=== PATIENT | female | born 1935 | race Caucasian/White ===

== ENCOUNTER → 2016-04-21 | Outpatient (CLI) | payer MEDICARE, OTHER ==
[~2016-04-21] MED LIST: LISI-275 PO; MET50T PO; OMEP20CA5 PO; TRIATAB3 PO
[2016-04-21 12:28] LABS: Albumin 3.6 g/dL (3.4-5.0); Bilirubin, Total 0.6 mg/dL (0.2-1.0); Calcium 9.5 mg/dL (8.5-10.1); Potassium 4.2 mmol/L (3.5-5.1); Total Protein 7.7 g/dL (6.4-8.2)
[2016-04-21 12:35] LABS: INR 1.09 (0.9-1.15); Partial Thromboplastin Time 26.8 sec (22.64-33.71); Prothrombin Time 11.2 sec (9.37-12.3)
[2016-04-21 12:48] LABS: Urine Bilirubin Negative (Negative); Urine Blood Negative /uL (Negative); Urine Color Yellow (Yellow); Urine Glucose Normal (Normal); Urine Ketone Negative (Negative); Urine Nitrite Negative (Negative); Urine RBC <1 /hpf (0 - 4); Urine Squamous Epithelial Cell FEW /hpf (<5); Urine Urobilinogen Normal (Negative)
[2016-04-21 12:59] LABS: Basophils # (auto) 0 uL; Basophils % (auto) 0.3 % (0.0-2.0); Eosinophils # (auto) 0.1 uL; Eosinophils % (auto) 0.5 % (0.0-7.0); Hematocrit 50.7 % (36.0-46.0); Hemoglobin 16.5 g/dL (12.2-16.2); Lymphocytes # (auto) 1.5 uL; Lymphocytes % (auto) 16.1 % (10.0-50.0); Mean Corpuscular Hemoglobin 28.3 pg (28.0-32.0); Mean Corpuscular Hgb Conc. 32.7 g/dL (32.0-36.0); Mean Corpuscular Volume 86.7 fL (80.0-100.0); Mean Platelet Volume 9.5 fL (7.4-10.4); Monocytes # (auto) 0.7 uL; Monocytes % (auto) 7.1 % (0.0-12.0); Platelet Count (auto) 319 10^3/uL (140-450); Red Cell Distribution Width 14.2 % (11.6-16.0); White Blood Cell 9.2 10^3/uL (4.4-10.8)
== END | disposition home or self-care (01) ==
LOC: LAB 10:43
PROVIDERS: ATTEND Orthopaedic Surgery
DX: M17.9 Osteoarthritis of knee, unspecified (principal)
CPT/HCPCS: 36415; 80053; 81001; 85025; 85610; 85730; 86850; 86900; 86901

== ENCOUNTER 2019-04-06 07:08 | Emergency (ER) | payer MEDICARE, OTHER ==
[~2019-04-06] VITALS: Ht 157.5 cm; Wt 88.5 kg
[~2019-04-06 07:08] MED LIST changes: -OMEP20CA5 PO; +OMEP20CA74 PO
[2019-04-06 08:14] VITALS: BP 157/77
[2019-04-06] MEDS ORDERED: traMADol HCL 50 MG TAB PO ONE (09:00)
== END 2019-04-06 09:55 | disposition home or self-care (01) ==
LOC: ER 07:08
DX: S43.101A Unspecified dislocation of right acromioclavicular joint, initial encounter (principal); I10 Essential (primary) hypertension; Z88.6 Allergy status to analgesic agent; Z79.899 Other long term (current) drug therapy; W19.XXXA Unspecified fall, initial encounter; Y93.89 Activity, other specified; Y92.89 Other specified places as the place of occurrence of the external cause; Y99.8 Other external cause status
CPT/HCPCS: 29105; 73030

== ENCOUNTER 2021-03-27 08:47 | Emergency (ER) | payer MEDICARE, OTHER ==
[~2021-03-27] VITALS: Ht 157.5 cm; Wt 79.4 kg
[2021-03-27] MEDS ORDERED: LORazepam 0.5 MG TAB PO ONE (09:00)
[2021-03-27] MEDS ORDERED: ASPirin 81 mg TAB PO ONE (09:00)
[2021-03-27 10:10] LABS: Urine Bacteria NONE SEEN /hpf (None Seen); Urine Blood Negative /uL (Negative); Urine Hyaline Cast FEW /lpf (0 - 2); Urine Mucus FEW (None Seen); Urine Specific Gravity 1.023 (1.001-1.035); Urine WBC 27 /hpf (0 - 5)
[2021-03-27 11:12] LABS: Basophils # (auto) 0 10 ^3/uL (0-0.2); Basophils % (auto) 0.4 % (0.0-2.0); Eosinophils # (auto) 0 10 ^3/uL (0-0.8); Eosinophils % (auto) 0.6 % (0.0-7.0); Hematocrit 47.4 % (36.0-46.0); Hemoglobin 15.8 g/dL (12.2-16.2); Lymphocytes # (auto) 1.3 10 ^3/uL (0.4-5.4); Lymphocytes % (auto) 17.2 % (10.0-50.0); Mean Corpuscular Hemoglobin 29.6 pg (28.0-32.0); Mean Corpuscular Hgb Conc. 33.3 g/dL (32.0-36.0); Mean Corpuscular Volume 88.9 fL (80.0-100.0); Monocytes # (auto) 0.4 10 ^3/uL (0-1.3); Monocytes % (auto) 5.7 % (0.0-12.0); Neutrophils # (auto) 5.8 10 ^3/uL (1.6-8.6); Neutrophils % (auto) 76.1 % (37.0-80.0); Red Blood Cells 5.33 10^6/uL (4.0-5.20); Red Cell Distribution Width 13.8 % (11.8-14.3); White Blood Cell 7.6 10^3/uL (4.4-10.8)
[2021-03-27 11:24] LABS: Albumin 3.4 g/dL (3.4-5.0); Potassium 3.7 mmol/L (3.5-5.1)
[2021-03-27 11:31] LABS: BUN/Creatinine Ratio 28.6; Bilirubin, Total 0.5 mg/dL (0.2-1.0); Total Protein 7.1 g/dL (6.4-8.2)
[2021-03-27] MEDS ORDERED: NITR-87 PO (12:15)
[2021-03-27 12:30] VITALS: BP 150/48
== END 2021-03-27 12:53 | disposition home or self-care (01) ==
LOC: EDBD 08:47 → ER 08:47
DX: R00.2 Palpitations (principal); F41.9 Anxiety disorder, unspecified; N39.0 Urinary tract infection, site not specified; E78.5 Hyperlipidemia, unspecified; I10 Essential (primary) hypertension; Z90.710 Acquired absence of both cervix and uterus; Z88.6 Allergy status to analgesic agent
CPT/HCPCS: 36415; 71045; 80053; 81001; 84484; 85025; 93005

== ENCOUNTER 2021-07-25 10:03 | Inpatient (IN) | payer MEDICARE, OTHER, MEDICAID ==
[~2021-07-25] VITALS: Ht 157.5 cm; Wt 82.4 kg
[~2021-07-25 10:03] MED LIST changes: +NITR-87 PO
[2021-07-25] MEDS ORDERED: ASPirin 81 mg TAB PO ONE (10:30)
[2021-07-25 11:30] LABS: Basophils # (auto) 0 10 ^3/uL (0-0.2); Basophils % (auto) 0.5 % (0.0-2.0); Eosinophils # (auto) 0.4 10 ^3/uL (0-0.8); Eosinophils % (auto) 4.4 % (0.0-7.0); Hematocrit 41.6 % (36.0-46.0); Hemoglobin 14.5 g/dL (12.2-16.2); Lymphocytes # (auto) 2.2 10 ^3/uL (0.4-5.4); Lymphocytes % (auto) 27.2 % (10.0-50.0); Mean Corpuscular Hemoglobin 32.3 pg (28.0-32.0); Mean Corpuscular Volume 92.4 fL (80.0-100.0); Monocytes # (auto) 0.9 10 ^3/uL (0-1.3); Monocytes % (auto) 11.1 % (0.0-12.0); Neutrophils # (auto) 4.6 10 ^3/uL (1.6-8.6); Neutrophils % (auto) 56.8 % (37.0-80.0); Nucleated Red Blood Cells % 0.2 %; Red Cell Distribution Width 13.6 % (11.8-14.3); White Blood Cell 8.2 10^3/uL (4.4-10.8)
[2021-07-25 11:53] LABS: Potassium 4.6 mmol/L (3.5-5.1)
[2021-07-25 11:54] LABS: Albumin 3.9 g/dL (3.4-5.0)
[2021-07-25 12:01] LABS: Bilirubin, Total 0.6 mg/dL (0.2-1.0); Total Protein 6.9 g/dL (6.4-8.2)
[2021-07-25] MEDS ORDERED: NITROGLYCERIN 0.4 MG SL TAB SL PRN (15:15)
[2021-07-25 15:56] LABS: Cholesterol 138 mg/dL (< 200)
[2021-07-25 15:58] LABS: HDL Cholesterol 50 mg/dL (40-59); LDL Cholesterol 76 mg/dL (< 100); Triglycerides 86 mg/dL (< 150)
[2021-07-25] MEDS: SODIUM CHLORIDE 0.9% 1,000 ML IV SCH (18:14)
[2021-07-26] VITALS (7 sets, daily range): BP systolic 104–147; BP diastolic 48–108
[2021-07-26 05:30] LABS: Urine Bacteria FEW /hpf (None Seen); Urine Blood Negative /uL (Negative); Urine Mucus FEW (None Seen); Urine Specific Gravity 1.015 (1.001-1.035); Urine WBC 5 /hpf (0 - 5)
[2021-07-26 05:42] LABS: Basophils # (auto) 0 10 ^3/uL (0-0.2); Basophils % (auto) 0.4 % (0.0-2.0); Eosinophils # (auto) 0 10 ^3/uL (0-0.8); Eosinophils % (auto) 0.5 % (0.0-7.0); Hematocrit 45.6 % (36.0-46.0); Hemoglobin 15.2 g/dL (12.2-16.2); Lymphocytes # (auto) 1.5 10 ^3/uL (0.4-5.4); Lymphocytes % (auto) 17.7 % (10.0-50.0); Mean Corpuscular Hemoglobin 29.6 pg (28.0-32.0); Mean Corpuscular Hgb Conc. 33.4 g/dL (32.0-36.0); Mean Corpuscular Volume 88.7 fL (80.0-100.0); Monocytes # (auto) 0.7 10 ^3/uL (0-1.3); Monocytes % (auto) 8.8 % (0.0-12.0); Neutrophils # (auto) 6.1 10 ^3/uL (1.6-8.6); Neutrophils % (auto) 72.6 % (37.0-80.0); Nucleated Red Blood Cells % 0.1 %; Red Blood Cells 5.14 10^6/uL (4.0-5.20); Red Cell Distribution Width 14.2 % (11.8-14.3); White Blood Cell 8.4 10^3/uL (4.4-10.8)
[2021-07-26 06:00] LABS: Potassium 4.5 mmol/L (3.5-5.1)
[2021-07-26 06:08] LABS: Albumin 3.1 g/dL (3.4-5.0); BUN/Creatinine Ratio 29.2; Bilirubin, Total 0.7 mg/dL (0.2-1.0); Calcium 8.7 mg/dL (8.5-10.1); Total Protein 6.8 g/dL (6.4-8.2)
[2021-07-26] MEDS ORDERED: IBUP800T27 PO (06:50)
[2021-07-26] MEDS ORDERED: MELA3TAB27 PO (06:50)
[2021-07-26] MEDS ORDERED: SIMV10TA84 PO (06:50)
[2021-07-26] MEDS ORDERED: ADENOSINE 70 MG in GIVE UN-DILUTED 0 ML IV ONE (08:30)
[2021-07-26] MEDS ORDERED: ATORVASTATIN 20 MG TAB PO ONE (10:30)
[2021-07-26] MEDS ORDERED: LISINOPRIL 5 MG TAB PO ONE (10:30)
[2021-07-26] MEDS ORDERED: PANTOPRAZOLE 40 MG/10 ML VIAL INJ IV ONE (10:30)
[2021-07-26] MEDS: SODIUM CHLORIDE 0.9% 1,000 ML IV SCH (13:51)
[2021-07-26] MEDS: ATORVASTATIN 20 MG TAB PO SCH (21:59)
[2021-07-26] MEDS ORDERED: METOPROLOL TARTRATE 50 MG TAB PO SCH (22:00)
[2021-07-27] MEDS: SODIUM CHLORIDE 0.9% 1,000 ML IV SCH ×2 (03:08→17:15)
[2021-07-27 04:00] VITALS: BP 134/49
[2021-07-27] MEDS ORDERED: LORazepam 2MG/ML-1ML VIAL IV PRN (08:45)
[2021-07-27 09:17] VITALS: BP 124/46
[2021-07-27 10:13] LABS: Folate (Folic Acid) 11.52 ng/mL (5.38-24)
[2021-07-27] MEDS: LISINOPRIL 5 MG TAB PO SCH (11:25)
[2021-07-27] MEDS: PANTOPRAZOLE 40 MG/10 ML VIAL INJ IV SCH (11:25)
[2021-07-27 13:00] VITALS: BP 119/47
[2021-07-27 17:53] VITALS: BP 119/49
[2021-07-27 20:00] VITALS: BP 122/56
[2021-07-27] MEDS: ATORVASTATIN 20 MG TAB PO SCH (20:20)
[2021-07-27 22:00] VITALS: BP 127/44
[2021-07-28 05:00] VITALS: BP 151/62
[2021-07-28] MEDS: PANTOPRAZOLE 40 MG/10 ML VIAL INJ IV SCH (08:39)
[2021-07-28] MEDS: SODIUM CHLORIDE 0.9% 1,000 ML IV SCH (08:50)
[2021-07-28 09:00] VITALS: BP 131/52
[2021-07-28] MEDS: LISINOPRIL 5 MG TAB PO SCH (10:00)
[2021-07-28 11:39] VITALS: BP 122/56
[2021-07-28 13:01] VITALS: BP 136/62
== END 2021-07-28 13:37 | disposition home health service (06) | DRG 311 ==
LOC: EDBD 10:03 → ER 10:22 → TELE 15:13 → TELE-WESTW 23:28
PROVIDERS: ADMIT Registered Nurse; ATTEND Family Medicine
DX: I24.9 Acute ischemic heart disease, unspecified (principal); G93.41 Metabolic encephalopathy; E44.0 Moderate protein-calorie malnutrition; F02.80 Dementia in other diseases classified elsewhere, unspecified severity, without behavioral disturbance, psychotic disturbance, mood disturbance, and anxiety; N18.32 Chronic kidney disease, stage 3b; K21.9 Gastro-esophageal reflux disease without esophagitis; R55 Syncope and collapse; Z20.822 Contact with and (suspected) exposure to COVID-19; E66.9 Obesity, unspecified; E78.00 Pure hypercholesterolemia, unspecified; I12.9 Hypertensive chronic kidney disease with stage 1 through stage 4 chronic kidney disease, or unspecified chronic kidney disease; E78.5 Hyperlipidemia, unspecified; F17.200 Nicotine dependence, unspecified, uncomplicated; G30.9 Alzheimer's disease, unspecified; H91.90 Unspecified hearing loss, unspecified ear; Z60.2 Problems related to living alone; M81.0 Age-related osteoporosis without current pathological fracture; Z79.899 Other long term (current) drug therapy; Z85.3 Personal history of malignant neoplasm of breast; Z88.6 Allergy status to analgesic agent; Z86.718 Personal history of other venous thrombosis and embolism; Z90.11 Acquired absence of right breast and nipple; Z90.49 Acquired absence of other specified parts of digestive tract; Z90.710 Acquired absence of both cervix and uterus; Z68.33 Body mass index [BMI] 33.0-33.9, adult
CPT/HCPCS: 36415; 70551; 71045; 78452; 80053; 80061; 81001; 82607; 82746; 83036; 83880; 84443; 84484; 85025; 93005; 93017; 93306; 93970; 95819; 96360; 97163; C9113; G0378; J0153

== ENCOUNTER 2022-05-08 15:49 | Inpatient (IN) | payer OTHER, MEDICAID ==
[~2022-05-08] VITALS: Ht 203.2 cm; Wt 71.4 kg
[~2022-05-08 15:49] MED LIST changes: +IBUP800T27 PO; +MELA3TAB27 PO; +SIMV10TA84 PO
[2022-05-08 17:54] LABS: Hematocrit 43.3 % (36.0-46.0); Mean Corpuscular Hgb Conc. 33.8 g/dL (32.0-36.0); Red Blood Cells 5.06 10^6/uL (4.0-5.20)
[2022-05-08 17:56] LABS: Hemoglobin 14.7 g/dL (12.2-16.2); Mean Corpuscular Volume 85.7 fL (80.0-100.0); Red Cell Distribution Width 15.5 % (11.8-14.3); White Blood Cell 11.4 10^3/uL (4.4-10.8)
[2022-05-08 18:05] LABS: Albumin 2.7 g/dL (3.4-5.0); Calcium 9.2 mg/dL (8.5-10.1); Potassium 4.5 mmol/L (3.5-5.1)
[2022-05-08 18:09] LABS: BUN/Creatinine Ratio 30.4 (10.0-20.0); Bilirubin, Total 0.4 mg/dL (0.2-1.0); Total Protein 7.1 g/dL (6.4-8.2)
[2022-05-08 18:22] LABS: Basophils % (manual) 0 (0.0-2.0); Blast Cells 0; Eosinophils % (manual) 0 (0-7); Metamyelocytes % 0; Myelocytes % 0; Promyelocytes % 0; Reactive Lymphocytes 0
[2022-05-08] MEDS ORDERED: cefTRIAXone 1GM/50ML D5W 50 ML IV ONE (18:30)
[2022-05-08 18:43] LABS: Band Neutrophils % (manual) 4; Lymphocytes % (manual) 12 (10.0-50.0); Monocytes % (manual) 6 (0-12)
[2022-05-08] MEDS ORDERED: ACETAMINOPHEN 325 MG TAB PO PRN (19:45)
[2022-05-08] MEDS ORDERED: SODIUM CHLORIDE 0.9% 1,000 ML IV ONE (19:45)
[2022-05-08] MEDS ORDERED: PANTOPRAZOLE 40 MG/10 ML VIAL INJ IV ONE (19:45)
[2022-05-08 20:15] LABS: INR 1.15 (0.9-1.15)
[2022-05-08] MEDS: SODIUM CHLORIDE 0.9% 1,000 ML IV SCH (23:00)
[2022-05-08] MEDS: METOPROLOL TARTRATE 50 MG TAB PO SCH (23:57)
[2022-05-09 01:03] LABS: Urine Bacteria MOD /hpf (None Seen); Urine Blood 1+ /uL (Negative); Urine Specific Gravity 1.017 (1.001-1.035); Urine WBC 15 /hpf (0 - 5)
[2022-05-09 01:13] LABS: Alcohol, Urine < 3.0 mg/dL (0-10); Amphetamine Screen, Urine NEGATIVE (NEGATIVE); Barbiturate Scree,Urine NEGATIVE (NEGATIVE); Benzodiazephine Screen, Urine POSITIVE (NEGATIVE); Cannabinoid Screen, Urine NEGATIVE (NEGATIVE); Cocaine Screen, Urine NEGATIVE (NEGATIVE); Opiate Scree,Urine NEGATIVE (NEGATIVE); Phencyclidine Screen, Urine NEGATIVE (NEGATIVE)
[2022-05-09 07:11] LABS: Hematocrit 38.8 % (36.0-46.0); Hemoglobin 13.5 g/dL (12.2-16.2); Mean Corpuscular Hemoglobin 29.1 pg (28.0-32.0); Mean Corpuscular Hgb Conc. 34.8 g/dL (32.0-36.0); Mean Corpuscular Volume 83.7 fL (80.0-100.0); Red Blood Cells 4.63 10^6/uL (4.0-5.20); Red Cell Distribution Width 14.9 % (11.8-14.3); White Blood Cell 8.8 10^3/uL (4.4-10.8)
[2022-05-09 07:17] LABS: Potassium 3.7 mmol/L (3.5-5.1)
[2022-05-09 07:24] LABS: Albumin 2.3 g/dL (3.4-5.0); BUN/Creatinine Ratio 29.7 (10.0-20.0); Bilirubin, Total 0.7 mg/dL (0.2-1.0); Calcium 8.7 mg/dL (8.5-10.1); Total Protein 6.5 g/dL (6.4-8.2)
[2022-05-09 07:27] LABS: Basophils % (manual) 0 (0.0-2.0); Blast Cells 0; Metamyelocytes % 0; Myelocytes % 0; Promyelocytes % 0; Reactive Lymphocytes 0
[2022-05-09] MEDS: cefTRIAXone 1GM/50ML D5W 50 ML IV SCH (09:05)
[2022-05-09] MEDS: SODIUM CHLORIDE 0.9% 1,000 ML IV SCH ×2 (09:50→22:25)
[2022-05-09] MEDS ORDERED: PATIENTS OWN MEDICATION (Simvastatin 10 MG) PO SCH (10:00)
[2022-05-09] MEDS: PANTOPRAZOLE 40 MG/10 ML VIAL INJ IV SCH (10:17)
[2022-05-09] MEDS: ENOXAPARIN SOD 40 MG/0.4 ML SYRINGE SC SCH (10:19)
[2022-05-09] MEDS: TRIAMTERENE/HCTZ 37.5/25 MG CAP/TAB PO SCH (10:20)
[2022-05-09] MEDS: METOPROLOL TARTRATE 50 MG TAB PO SCH ×2 (10:21→21:57)
[2022-05-09 12:37] LABS: Band Neutrophils % (manual) 17; Eosinophils % (manual) 1 (0-7); Lymphocytes % (manual) 15 (10.0-50.0); Monocytes % (manual) 4 (0-12)
[2022-05-09] MEDS ORDERED: ALPRAZolam 0.5 MG TAB PO ONE (21:00)
[2022-05-09] MEDS: PRAVASTATIN SODIUM 20 MG TAB PO SCH (21:56)
[2022-05-09 22:00] VITALS: BP 144/81
[2022-05-09 22:31] VITALS: BP 144/81
[2022-05-10 05:00] VITALS: BP 139/93
[2022-05-10] MEDS ORDERED: QUET1TAB11 PO (08:37)
[2022-05-10] MEDS ORDERED: LORazepam 2MG/ML-1ML VIAL IV PRN (08:45)
[2022-05-10 09:00] VITALS: BP 109/55
[2022-05-10] MEDS: QUEtiapine FUMARATE 25 MG TAB PO SCH (09:20)
[2022-05-10] MEDS: METOPROLOL TARTRATE 50 MG TAB PO SCH ×2 (10:00→22:15)
[2022-05-10] MEDS: TRIAMTERENE/HCTZ 37.5/25 MG CAP/TAB PO SCH (10:00)
[2022-05-10] MEDS: PANTOPRAZOLE 40 MG/10 ML VIAL INJ IV SCH (10:59)
[2022-05-10] MEDS: ENOXAPARIN SOD 40 MG/0.4 ML SYRINGE SC SCH (10:59)
[2022-05-10] MEDS: cefTRIAXone 1GM/50ML D5W 50 ML IV SCH (10:59)
[2022-05-10] MEDS: SODIUM CHLORIDE 0.9% 1,000 ML IV SCH (11:02)
[2022-05-10] MEDS: ALPRAZolam 0.5 MG TAB PO SCH ×2 (14:21→22:14)
[2022-05-10 17:00] VITALS: BP 129/72
[2022-05-10 22:00] VITALS: BP 121/53
[2022-05-10] MEDS: PRAVASTATIN SODIUM 20 MG TAB PO SCH (22:15)
[2022-05-11] MEDS: SODIUM CHLORIDE 0.9% 1,000 ML IV SCH ×3 (01:05→20:52)
[2022-05-11 05:00] VITALS: BP 113/52
[2022-05-11] MEDS: ALPRAZolam 0.5 MG TAB PO SCH (05:38)
[2022-05-11 09:19] VITALS: BP 118/49
[2022-05-11] MEDS: TRIAMTERENE/HCTZ 37.5/25 MG CAP/TAB PO SCH (10:00)
[2022-05-11] MEDS: METOPROLOL TARTRATE 50 MG TAB PO SCH ×2 (10:00→22:03)
[2022-05-11] MEDS: QUEtiapine FUMARATE 25 MG TAB PO SCH (10:00)
[2022-05-11] MEDS ORDERED: LORazepam 0.5 MG TAB PO PRN (10:15)
[2022-05-11] MEDS: ENOXAPARIN SOD 40 MG/0.4 ML SYRINGE SC SCH (10:56)
[2022-05-11] MEDS: PANTOPRAZOLE 40 MG/10 ML VIAL INJ IV SCH (10:56)
[2022-05-11] MEDS: cefTRIAXone 1GM/50ML D5W 50 ML IV SCH (10:56)
[2022-05-11 13:00] VITALS: BP 106/59
[2022-05-11 17:00] VITALS: BP 117/57
[2022-05-11 22:00] VITALS: BP 124/52
[2022-05-11] MEDS: PRAVASTATIN SODIUM 20 MG TAB PO SCH (22:03)
[2022-05-12 08:00] VITALS: BP 117/45
[2022-05-12] MEDS ORDERED: LINE1TAB6 PO (09:00)
[2022-05-12] MEDS ORDERED: BACDST PO (09:00)
[2022-05-12] MEDS: METOPROLOL TARTRATE 50 MG TAB PO SCH (09:49)
[2022-05-12] MEDS: PANTOPRAZOLE 40 MG/10 ML VIAL INJ IV SCH (09:49)
[2022-05-12] MEDS: ENOXAPARIN SOD 40 MG/0.4 ML SYRINGE SC SCH (09:49)
[2022-05-12] MEDS: QUEtiapine FUMARATE 25 MG TAB PO SCH (09:49)
[2022-05-12] MEDS: TRIAMTERENE/HCTZ 37.5/25 MG CAP/TAB PO SCH (09:49)
[2022-05-12] MEDS: cefTRIAXone 1GM/50ML D5W 50 ML IV SCH (09:49)
[2022-05-12 12:00] VITALS: BP 127/60
[2022-05-12 12:27] VITALS: BP 127/60
[2022-05-12 16:00] VITALS: BP 129/77
== END 2022-05-12 16:30 | disposition home or self-care (01) | DRG 871 ==
LOC: ER 15:49 → EDBD 15:49 → OVERFLOW 19:41 → CENTRAL 05-09 21:40
PROVIDERS: ADMIT Nurse Practitioner Family; ATTEND Family Medicine
DX: A41.9 Sepsis, unspecified organism (principal); G93.41 Metabolic encephalopathy; N17.9 Acute kidney failure, unspecified; N39.0 Urinary tract infection, site not specified; L03.115 Cellulitis of right lower limb; L03.116 Cellulitis of left lower limb; F03.C4 Unspecified dementia, severe, with anxiety; E78.00 Pure hypercholesterolemia, unspecified; B95.61 Methicillin susceptible Staphylococcus aureus infection as the cause of diseases classified elsewhere; Z20.822 Contact with and (suspected) exposure to COVID-19; K21.9 Gastro-esophageal reflux disease without esophagitis; I10 Essential (primary) hypertension; Z85.3 Personal history of malignant neoplasm of breast; Z90.710 Acquired absence of both cervix and uterus; Z97.4 Presence of external hearing-aid; Z88.5 Allergy status to narcotic agent; Z90.49 Acquired absence of other specified parts of digestive tract
CPT/HCPCS: 36415; 70450; 71045; 80053; 80307; 81001; 82140; 83605; 83690; 84484; 85007; 85027; 85610; 87040; 87086; 87088; 87186; 87426; 93306; 93970; 96365; 96366; 96372; 96375; 97163; C9113; G0378; J0696

== ENCOUNTER 2022-08-26 15:14 | Inpatient (IN) | payer OTHER, MEDICARE, MEDICAID ==
[~2022-08-26] VITALS: Ht 162.6 cm; Wt 78.0 kg
[~2022-08-26 15:14] MED LIST changes: +BACDST PO; +IBUP-1456 PO; -IBUP800T27 PO; +LINE1TAB6 PO; +QUET1TAB11 PO; +SIMV10TA20 PO; -SIMV10TA84 PO
[2022-08-26] MEDS ORDERED: SODIUM CHLORIDE 0.9% 1,000 ML IV ONE (15:30)
[2022-08-26 15:50] LABS: Basophils # (auto) 0.1 10 ^3/uL (0-0.2); Basophils % (auto) 1.1 % (0.0-2.0); Eosinophils # (auto) 0.1 10 ^3/uL (0-0.8); Eosinophils % (auto) 1.3 % (0.0-7.0); Hemoglobin 15.1 g/dL (12.2-16.2); Lymphocytes # (auto) 1.1 10 ^3/uL (0.4-5.4); Lymphocytes % (auto) 15.5 % (10.0-50.0); Mean Corpuscular Hgb Conc. 32.9 g/dL (32.0-36.0); Monocytes # (auto) 0.5 10 ^3/uL (0-1.3); Monocytes % (auto) 7.3 % (0.0-12.0); Neutrophils # (auto) 5.3 10 ^3/uL (1.6-8.6); Neutrophils % (auto) 74.8 % (37.0-80.0); Red Blood Cells 5.23 10^6/uL (4.0-5.20); Red Cell Distribution Width 13.9 % (11.8-14.3); White Blood Cell 7.1 10^3/uL (4.4-10.8)
[2022-08-26 16:09] LABS: Albumin 3.2 g/dL (3.4-5.0); Calcium 8.5 mg/dL (8.5-10.1); Potassium 4.4 mmol/L (3.5-5.1)
[2022-08-26 16:14] LABS: Bilirubin, Total 0.3 mg/dL (0.2-1.0); Total Protein 6.6 g/dL (6.4-8.2)
[2022-08-26 16:15] VITALS: PULSE 82; RESP 20; O2SAT 95
[2022-08-26 16:23] LABS: Urine Bacteria FEW /hpf (None Seen); Urine Blood Negative /uL (Negative); Urine Specific Gravity 1.008 (1.001-1.035); Urine WBC 5 /hpf (0 - 5)
[2022-08-26] MEDS ORDERED: VANCOMYCIN PER PHARMACY 0 MG IV SCH (17:45)
[2022-08-26] MEDS ORDERED: ONDANSETRON HCL 4 MG/2 ML VIAL IV PRN (17:45)
[2022-08-26] MEDS ORDERED: DOCUSATE SOD 100 MG CAP PO PRN (17:45)
[2022-08-26] MEDS ORDERED: VANCOMYCIN 1GM/250ML 250 ML IV ONE ×2 (18:30→21:00)
[2022-08-26] MEDS: levoFLOXacin 500MG 100 ML IV SCH ×2 (18:37→22:48)
[2022-08-26] MEDS: METOPROLOL TARTRATE 50 MG TAB PO SCH (22:00)
[2022-08-26 22:37] VITALS: PULSE 84; RESP 12; O2SAT 95
[2022-08-27] VITALS (7 sets, daily range): BP systolic 121–145; BP diastolic 40–80; PULSE 62–98; RESP 16–18; TEMP 97.4–98.7; O2SAT 90–97
[2022-08-27 09:11] LABS: Basophils # (auto) 0 10 ^3/uL (0-0.2); Basophils % (auto) 0.6 % (0.0-2.0); Eosinophils # (auto) 0 10 ^3/uL (0-0.8); Eosinophils % (auto) 0.5 % (0.0-7.0); Hematocrit 49.6 % (36.0-46.0); Hemoglobin 16.3 g/dL (12.2-16.2); Lymphocytes # (auto) 1.2 10 ^3/uL (0.4-5.4); Lymphocytes % (auto) 15.1 % (10.0-50.0); Mean Corpuscular Hemoglobin 28.9 pg (28.0-32.0); Mean Corpuscular Volume 87.8 fL (80.0-100.0); Monocytes # (auto) 0.5 10 ^3/uL (0-1.3); Monocytes % (auto) 6.1 % (0.0-12.0); Neutrophils # (auto) 6.2 10 ^3/uL (1.6-8.6); Neutrophils % (auto) 77.7 % (37.0-80.0); Nucleated Red Blood Cells % 0.2 %; Red Blood Cells 5.65 10^6/uL (4.0-5.20); Red Cell Distribution Width 13.7 % (11.8-14.3)
[2022-08-27] MEDS ORDERED: LORazepam 2MG/ML-1ML VIAL IV ONE (09:30)
[2022-08-27 09:31] LABS: Albumin 3.3 g/dL (3.4-5.0); Calcium 9.2 mg/dL (8.5-10.1); Potassium 3.8 mmol/L (3.5-5.1)
[2022-08-27 09:39] LABS: BUN/Creatinine Ratio 22.4 (10.0-20.0); Bilirubin, Total 0.5 mg/dL (0.2-1.0); Total Protein 6.9 g/dL (6.4-8.2)
[2022-08-27] MEDS: LISINOPRIL 5 MG TAB PO SCH (10:56)
[2022-08-27] MEDS: FUROSEMIDE 20 MG/2 ML VIAL IV SCH (10:57)
[2022-08-27] MEDS: METOPROLOL TARTRATE 50 MG TAB PO SCH ×2 (10:57→22:38)
[2022-08-27] MEDS ORDERED: SODIUM CHLORIDE 0.9% 1,000 ML IV ONE ×2 (14:30→14:45)
[2022-08-27] MEDS ORDERED: HALOPERIDOL LACTATE 5 MG/ML INJ VIAL IV PRN (14:30)
[2022-08-27] MEDS ORDERED: SODIUM CHLORIDE 0.9% 2,200 ML IV ONE (14:30)
[2022-08-27] MEDS: HALOPERIDOL LACTATE 5 MG/ML INJ VIAL IM PRN (14:44)
[2022-08-27] MEDS ORDERED: SODIUM CHLORIDE 0.9% 2,000 ML IV ONE (14:45)
[2022-08-27] MEDS: VANCOMYCIN 750mg/250ml 250 ML IV SCH (17:24)
[2022-08-27] MEDS: levoFLOXacin 500MG 100 ML IV SCH (22:38)
[2022-08-27] MEDS: PRAVASTATIN SODIUM 20 MG TAB PO SCH (22:38)
[2022-08-27] MEDS: SODIUM CHLORIDE 0.9% 1,000 ML IV SCH ×2 (22:39→23:10)
[2022-08-28] VITALS (7 sets, daily range): BP systolic 130–150; BP diastolic 63–83; PULSE 85–102; RESP 18–22; TEMP 98.5–98.8; O2SAT 93–97
[2022-08-28] MEDS: VANCOMYCIN 750mg/250ml 250 ML IV SCH ×2 (02:22→14:18)
[2022-08-28] MEDS: HALOPERIDOL LACTATE 5 MG/ML INJ VIAL IM PRN (02:23)
[2022-08-28] MEDS: SODIUM CHLORIDE 0.9% 1,000 ML IV SCH ×3 (06:43→19:10)
[2022-08-28] MEDS: FUROSEMIDE 20 MG/2 ML VIAL IV SCH (11:31)
[2022-08-28] MEDS: METOPROLOL TARTRATE 50 MG TAB PO SCH ×2 (11:31→21:52)
[2022-08-28] MEDS: LISINOPRIL 5 MG TAB PO SCH (11:32)
[2022-08-28] MEDS: levoFLOXacin 500MG 100 ML IV SCH (21:51)
[2022-08-28] MEDS: PRAVASTATIN SODIUM 20 MG TAB PO SCH (21:52)
[2022-08-29] MEDS ORDERED: VANCOMYCIN 1GM/250ML 250 ML IV ONE (00:38)
[2022-08-29] MEDS: VANCOMYCIN 750mg/250ml 250 ML IV SCH ×2 (00:51→13:00)
[2022-08-29] MEDS: SODIUM CHLORIDE 0.9% 1,000 ML IV SCH ×3 (01:50→15:10)
[2022-08-29 05:05] VITALS: BP 122/56; PULSE 69; RESP 20; TEMP 98.3; O2SAT 99
[2022-08-29 08:00] VITALS: PULSE 68; RESP 16; O2SAT 94
[2022-08-29] MEDS: FUROSEMIDE 20 MG/2 ML VIAL IV SCH (09:46)
[2022-08-29] MEDS: TRIAMTERENE/HCTZ 37.5/25 MG CAP/TAB PO SCH (09:46)
[2022-08-29] MEDS: LISINOPRIL 5 MG TAB PO SCH (09:47)
[2022-08-29] MEDS: QUEtiapine FUMARATE 25 MG TAB PO SCH ×3 (09:48→22:02)
[2022-08-29] MEDS: METOPROLOL TARTRATE 50 MG TAB PO SCH ×3 (09:48→22:03)
[2022-08-29] MEDS: HALOPERIDOL LACTATE 5 MG/ML INJ VIAL IM PRN ×2 (11:31→23:45)
[2022-08-29 20:00] VITALS: PULSE 95; RESP 18; O2SAT 94
[2022-08-29 22:00] VITALS: BP 141/100; PULSE 95; RESP 18; TEMP 98.4; O2SAT 99
[2022-08-29] MEDS: MELATONIN 5 MG TAB PO SCH ×2 (22:00→22:02)
[2022-08-29] MEDS: PRAVASTATIN SODIUM 20 MG TAB PO SCH ×2 (22:00→22:02)
[2022-08-29] MEDS: levoFLOXacin 500MG 100 ML IV SCH (22:01)
[2022-08-30] VITALS (7 sets, daily range): BP systolic 96–162; BP diastolic 38–68; PULSE 68–97; RESP 16–18; TEMP 36.8; O2SAT 93–97
[2022-08-30] MEDS: VANCOMYCIN 750mg/250ml 250 ML IV SCH ×2 (00:35→12:14)
[2022-08-30] MEDS: SODIUM CHLORIDE 0.9% 1,000 ML IV SCH ×3 (03:28→10:34)
[2022-08-30 10:03] LABS: Calcium 8.7 mg/dL (8.5-10.1); Potassium 3.3 mmol/L (3.5-5.1)
[2022-08-30 10:05] LABS: BUN/Creatinine Ratio 26.1 (10.0-20.0)
[2022-08-30 10:19] LABS: Basophils # (auto) 0 10 ^3/uL (0-0.2); Basophils % (auto) 0.5 % (0.0-2.0); Eosinophils # (auto) 0 10 ^3/uL (0-0.8); Eosinophils % (auto) 0.2 % (0.0-7.0); Hematocrit 46.8 % (36.0-46.0); Hemoglobin 15.2 g/dL (12.2-16.2); Lymphocytes # (auto) 1.1 10 ^3/uL (0.4-5.4); Lymphocytes % (auto) 12.3 % (10.0-50.0); Mean Corpuscular Hemoglobin 28.9 pg (28.0-32.0); Mean Corpuscular Hgb Conc. 32.5 g/dL (32.0-36.0); Mean Corpuscular Volume 88.7 fL (80.0-100.0); Monocytes # (auto) 1.1 10 ^3/uL (0-1.3); Monocytes % (auto) 11.8 % (0.0-12.0); Neutrophils % (auto) 75.2 % (37.0-80.0); Nucleated Red Blood Cells % 0.1 %; Red Blood Cells 5.27 10^6/uL (4.0-5.20); Red Cell Distribution Width 13.9 % (11.8-14.3); White Blood Cell 9.3 10^3/uL (4.4-10.8)
[2022-08-30] MEDS: FUROSEMIDE 20 MG/2 ML VIAL IV SCH (10:25)
[2022-08-30] MEDS: TRIAMTERENE/HCTZ 37.5/25 MG CAP/TAB PO SCH (10:25)
[2022-08-30] MEDS: QUEtiapine FUMARATE 25 MG TAB PO SCH (10:26)
[2022-08-30] MEDS: METOPROLOL TARTRATE 50 MG TAB PO SCH (10:26)
[2022-08-30] MEDS: LISINOPRIL 5 MG TAB PO SCH (10:27)
[2022-08-30] MEDS ORDERED: NITR50CA24 PO (10:47)
[2022-08-30] MEDS ORDERED: POTASSIUM CHL 20 Meq TABLET PO ONE (11:15)
[2022-08-30] MEDS: HALOPERIDOL LACTATE 5 MG/ML INJ VIAL IM PRN (12:36)
[2022-08-30] MEDS ORDERED: KETOROLAC TROMETH 30 MG/ML 1ML VIAL IV ONE (16:30)
== END 2022-08-30 17:30 | disposition hospice, home (50) | DRG 177 ==
LOC: ER 15:14 → EDBD 15:14 → OVERFLOW 18:01 → EAST 08-27 10:07 → CENTRAL 08-27 18:52
PROVIDERS: ADMIT Family Medicine; ATTEND Family Medicine
DX: J15.6 Pneumonia due to other Gram-negative bacteria (principal); E43 Unspecified severe protein-calorie malnutrition; G93.41 Metabolic encephalopathy; I50.43 Acute on chronic combined systolic (congestive) and diastolic (congestive) heart failure; J98.11 Atelectasis; F03.C18 Unspecified dementia, severe, with other behavioral disturbance; N39.0 Urinary tract infection, site not specified; E78.5 Hyperlipidemia, unspecified; I11.0 Hypertensive heart disease with heart failure; E78.00 Pure hypercholesterolemia, unspecified; E88.09 Other disorders of plasma-protein metabolism, not elsewhere classified; Z88.6 Allergy status to analgesic agent; Z87.440 Personal history of urinary (tract) infections; Z85.3 Personal history of malignant neoplasm of breast; Z90.49 Acquired absence of other specified parts of digestive tract; Z90.710 Acquired absence of both cervix and uterus; Z68.29 Body mass index [BMI] 29.0-29.9, adult
CPT/HCPCS: 36415; 70450; 71045; 80048; 80053; 80202; 81001; 82962; 83605; 83880; 84484; 85025; 87040; 87086; 96365; 96367; 97163; G0378; J1885; J1956

== ENCOUNTER 2022-10-04 15:50 | Inpatient (IN) | payer MEDICARE, OTHER, MEDICAID ==
[~2022-10-04] VITALS: Ht 152.4 cm; Wt 80.2 kg
[~2022-10-04 15:50] MED LIST changes: +NITR50CA24 PO
[2022-10-04 17:07] LABS: Basophils # (auto) 0.1 10 ^3/uL (0-0.2); Basophils % (auto) 1.5 % (0.0-2.0); Eosinophils # (auto) 0.1 10 ^3/uL (0-0.8); Eosinophils % (auto) 1.7 % (0.0-7.0); Hematocrit 46.9 % (36.0-46.0); Hemoglobin 15.5 g/dL (12.2-16.2); Lymphocytes # (auto) 1.6 10 ^3/uL (0.4-5.4); Lymphocytes % (auto) 19.1 % (10.0-50.0); Mean Corpuscular Hemoglobin 28.3 pg (28.0-32.0); Mean Corpuscular Volume 85.7 fL (80.0-100.0); Monocytes # (auto) 0.6 10 ^3/uL (0-1.3); Monocytes % (auto) 7.1 % (0.0-12.0); Neutrophils # (auto) 5.9 10 ^3/uL (1.6-8.6); Neutrophils % (auto) 70.6 % (37.0-80.0); Nucleated Red Blood Cells % 0.1 %; Red Blood Cells 5.47 10^6/uL (4.0-5.20); Red Cell Distribution Width 14.4 % (11.8-14.3); White Blood Cell 8.3 10^3/uL (4.4-10.8)
[2022-10-04 17:32] LABS: Alanine Aminotransferase 14 U/L (7-40); Albumin 3.8 g/dL (3.2-4.8); Alkaline Phosphatase 118 U/L (46-116); Aspartate Aminotransferase 18 U/L (13-40); BUN/Creatinine Ratio 24.3 (10.0-20.0); Bilirubin, Total 0.3 mg/dL (0.2-1.0); Blood Urea Nitrogen 18 mg/dL (9-23); Calcium 9.4 mg/dL (8.5-10.1); Chloride 108 mmol/L (98-107); Glucose 105 mg/dL (74-106); Magnesium 2.1 mg/dL (1.6-2.6); Potassium 4.3 mmol/L (3.5-5.1); Sodium 141 mmol/L (136-145); Total Protein 7.2 g/dL (5.7-8.2)
[2022-10-04 17:47] LABS: Anion Gap 1.5 (5-15); Carbon Dioxide 31.5 mmol/L (20-30)
[2022-10-04 17:52] VITALS: PULSE 67; RESP 10; O2SAT 92
[2022-10-04 17:58] LABS: INR 1.07 (0.9-1.15); Partial Thromboplastin Time 27.1 SEC (24.5-34.5); Prothrombin Time 11.2 sec (9.3-11.8)
[2022-10-04] MEDS ORDERED: SODIUM CHLORIDE 0.9% 1,000 ML IV ONE ×2 (18:00→22:15)
[2022-10-04] MEDS ORDERED: levoFLOXacin 750MG 150 ML IV ONE (18:00)
[2022-10-04 20:07] LABS: Urine WBC None Seen /hpf (0 - 5)
[2022-10-04 20:59] LABS: Urine Bacteria NONE SEEN /hpf (None Seen); Urine Blood Negative /uL (Negative); Urine Clarity Clear (Clear); Urine Color Colorless (Yellow); Urine Protein, UAD Negative (Negative); Urine Specific Gravity 1.006 (1.001-1.035); Urine Urobilinogen Normal (Negative)
[2022-10-04] MEDS ORDERED: ACETAMINOPHEN 325 MG TAB PO PRN (21:45)
[2022-10-04 21:48] VITALS: PULSE 67; RESP 12; O2SAT 98
[2022-10-04 22:03] VITALS: BP 166/112; PULSE 76; RESP 15; TEMP 98; O2SAT 95
[2022-10-04] MEDS ORDERED: HYDROcodone-ACET 5/325MG TAB PO PRN (22:15)
[2022-10-04 22:21] VITALS: O2SAT 98
[2022-10-04] MEDS: METOPROLOL TARTRATE 50 MG TAB PO SCH (22:37)
[2022-10-04] MEDS: QUEtiapine FUMARATE 25 MG TAB PO SCH (22:37)
[2022-10-05] VITALS (7 sets, daily range): BP systolic 116; BP diastolic 59; PULSE 74–83; RESP 12–20; TEMP 97.5; O2SAT 92–98
[2022-10-05] MEDS ORDERED: LORazepam 2MG/ML-1ML VIAL ONE (02:25)
[2022-10-05] MEDS ORDERED: LORazepam 2MG/ML-1ML VIAL IV ONE (02:30)
[2022-10-05 06:30] LABS: Basophils # (auto) 0 10 ^3/uL (0-0.2); Basophils % (auto) 0.7 % (0.0-2.0); Eosinophils # (auto) 0.1 10 ^3/uL (0-0.8); Eosinophils % (auto) 0.8 % (0.0-7.0); Hemoglobin 15.7 g/dL (12.2-16.2); Mean Corpuscular Hemoglobin 28.7 pg (28.0-32.0); Mean Corpuscular Hgb Conc. 33.4 g/dL (32.0-36.0); Mean Corpuscular Volume 86.1 fL (80.0-100.0); Monocytes # (auto) 0.6 10 ^3/uL (0-1.3); Monocytes % (auto) 8.4 % (0.0-12.0); Neutrophils # (auto) 5.6 10 ^3/uL (1.6-8.6); Neutrophils % (auto) 76.1 % (37.0-80.0); Nucleated Red Blood Cells % 0.1 %; Red Blood Cells 5.46 10^6/uL (4.0-5.20); Red Cell Distribution Width 14.5 % (11.8-14.3); White Blood Cell 7.4 10^3/uL (4.4-10.8)
[2022-10-05] MEDS: ALBUTEROL SULF 2.5 MG/0.5ML(0.5%) NEB SOLN NEB SCH ×3 (06:40→18:39)
[2022-10-05] MEDS: IPRATROPIUM BROM 0.5 MG/2.5ML INH SOL NEB SCH ×3 (06:40→18:39)
[2022-10-05 06:41] LABS: Alanine Aminotransferase 11 U/L (7-40); BUN/Creatinine Ratio 10.6 (10.0-20.0); Blood Urea Nitrogen 9 mg/dL (9-23); Calcium 9.2 mg/dL (8.7-10.4); Chloride 109 mmol/L (98-107); Glucose 98 mg/dL (74-106); Potassium 3.5 mmol/L (3.5-5.1); Sodium 143 mmol/L (136-145)
[2022-10-05 06:42] LABS: Albumin 3.9 g/dL (3.2-4.8)
[2022-10-05 06:43] LABS: Aspartate Aminotransferase 10 U/L (13-40); Bilirubin, Total 0.7 mg/dL (0.2-1.0); Total Protein 7.3 g/dL (5.7-8.2)
[2022-10-05 06:57] LABS: Alkaline Phosphatase 113 U/L (46-116)
[2022-10-05] MEDS ORDERED: levoFLOXacin 500MG 100 ML IV ONE (10:00)
[2022-10-05] MEDS: PANTOPRAZOLE 40 MG TAB PO SCH (10:14)
[2022-10-05] MEDS: METOPROLOL TARTRATE 50 MG TAB PO SCH ×2 (10:15→23:26)
[2022-10-05] MEDS: TRIAMTERENE/HCTZ 37.5/25 MG CAP/TAB PO SCH (10:15)
[2022-10-05] MEDS: LISINOPRIL 5 MG TAB PO SCH (10:16)
[2022-10-05] MEDS: ENOXAPARIN SOD 40 MG/0.4 ML SYRINGE SC SCH (10:16)
[2022-10-05] MEDS ORDERED: MELATONIN 5 MG TAB PO ONE (22:00)
[2022-10-05] MEDS: QUEtiapine FUMARATE 25 MG TAB PO SCH (23:26)
[2022-10-05] MEDS: ATORVASTATIN 20 MG TAB PO SCH (23:27)
[2022-10-06] VITALS (11 sets, daily range): BP systolic 113–144; BP diastolic 42–60; PULSE 57–72; RESP 14–30; TEMP 98.2–98.3; O2SAT 90–98
[2022-10-06] MEDS: ALPRAZolam 0.25 MG TAB PO PRN (05:09)
[2022-10-06] MEDS: IPRATROPIUM BROM 0.5 MG/2.5ML INH SOL NEB SCH ×3 (07:57→19:21)
[2022-10-06] MEDS: ALBUTEROL SULF 2.5 MG/0.5ML(0.5%) NEB SOLN NEB SCH ×3 (07:57→19:21)
[2022-10-06] MEDS: PANTOPRAZOLE 40 MG TAB PO SCH (10:13)
[2022-10-06] MEDS: METOPROLOL TARTRATE 50 MG TAB PO SCH ×2 (10:13→21:51)
[2022-10-06] MEDS: TRIAMTERENE/HCTZ 37.5/25 MG CAP/TAB PO SCH (10:16)
[2022-10-06] MEDS: LISINOPRIL 5 MG TAB PO SCH (10:16)
[2022-10-06] MEDS: ENOXAPARIN SOD 40 MG/0.4 ML SYRINGE SC SCH (10:17)
[2022-10-06] MEDS: levoFLOXacin 250MG 50 ML IV SCH (10:17)
[2022-10-06] MEDS: QUEtiapine FUMARATE 25 MG TAB PO SCH (21:50)
[2022-10-06] MEDS: ATORVASTATIN 20 MG TAB PO SCH (21:50)
[2022-10-07] VITALS (9 sets, daily range): BP systolic 109–131; BP diastolic 44–92; PULSE 66–94; RESP 16–24; TEMP 97.9–98.5; O2SAT 94–99
[2022-10-07] MEDS: IPRATROPIUM BROM 0.5 MG/2.5ML INH SOL NEB SCH ×3 (06:52→18:28)
[2022-10-07] MEDS: ALBUTEROL SULF 2.5 MG/0.5ML(0.5%) NEB SOLN NEB SCH ×3 (06:53→18:28)
[2022-10-07] MEDS: LISINOPRIL 5 MG TAB PO SCH (10:00)
[2022-10-07] MEDS: PANTOPRAZOLE 40 MG TAB PO SCH (10:13)
[2022-10-07] MEDS: METOPROLOL TARTRATE 50 MG TAB PO SCH ×2 (10:13→22:00)
[2022-10-07] MEDS: HYDROcodone-ACET 10/325MG TAB PO PRN (10:13)
[2022-10-07] MEDS: TRIAMTERENE/HCTZ 37.5/25 MG CAP/TAB PO SCH (10:13)
[2022-10-07] MEDS: levoFLOXacin 250MG 50 ML IV SCH (10:14)
[2022-10-07] MEDS: ENOXAPARIN SOD 40 MG/0.4 ML SYRINGE SC SCH (10:14)
[2022-10-07] MEDS: ALPRAZolam 0.25 MG TAB PO PRN (20:29)
[2022-10-07] MEDS: QUEtiapine FUMARATE 25 MG TAB PO SCH (22:00)
[2022-10-07] MEDS: ATORVASTATIN 20 MG TAB PO SCH (22:00)
[2022-10-08] VITALS (14 sets, daily range): BP systolic 99–133; BP diastolic 55–72; PULSE 76–97; RESP 18–22; TEMP 97.8–98.7; O2SAT 96–98
[2022-10-08] MEDS: ALBUTEROL SULF 2.5 MG/0.5ML(0.5%) NEB SOLN NEB SCH ×3 (06:25→19:15)
[2022-10-08] MEDS: IPRATROPIUM BROM 0.5 MG/2.5ML INH SOL NEB SCH ×3 (06:25→19:16)
[2022-10-08] MEDS: levoFLOXacin 250MG 50 ML IV SCH (09:12)
[2022-10-08] MEDS: TRIAMTERENE/HCTZ 37.5/25 MG CAP/TAB PO SCH (09:13)
[2022-10-08] MEDS: LISINOPRIL 5 MG TAB PO SCH (09:14)
[2022-10-08] MEDS: ENOXAPARIN SOD 40 MG/0.4 ML SYRINGE SC SCH (09:14)
[2022-10-08] MEDS: METOPROLOL TARTRATE 50 MG TAB PO SCH ×2 (09:14→21:29)
[2022-10-08] MEDS: PANTOPRAZOLE 40 MG TAB PO SCH (09:14)
[2022-10-08] MEDS: QUEtiapine FUMARATE 25 MG TAB PO SCH (21:28)
[2022-10-08] MEDS: ATORVASTATIN 20 MG TAB PO SCH (21:28)
[2022-10-09] VITALS (7 sets, daily range): BP systolic 103–119; BP diastolic 57–65; PULSE 63–79; RESP 16–20; TEMP 97.6–98.6; O2SAT 92–98
[2022-10-09] MEDS: HYDROcodone-ACET 10/325MG TAB PO PRN (01:20)
[2022-10-09] MEDS: IPRATROPIUM BROM 0.5 MG/2.5ML INH SOL NEB SCH ×2 (06:14→11:52)
[2022-10-09] MEDS: ALBUTEROL SULF 2.5 MG/0.5ML(0.5%) NEB SOLN NEB SCH ×2 (06:14→11:52)
[2022-10-09] MEDS: ENOXAPARIN SOD 40 MG/0.4 ML SYRINGE SC SCH (09:42)
[2022-10-09] MEDS: LISINOPRIL 5 MG TAB PO SCH (09:42)
[2022-10-09] MEDS: TRIAMTERENE/HCTZ 37.5/25 MG CAP/TAB PO SCH (09:43)
[2022-10-09] MEDS: METOPROLOL TARTRATE 50 MG TAB PO SCH (09:43)
[2022-10-09] MEDS: levoFLOXacin 250MG 50 ML IV SCH (09:43)
[2022-10-09] MEDS ORDERED: PANTOPRAZOLE 40 MG TAB PO SCH (10:00)
== END 2022-10-09 18:35 | DRG 563 ==
LOC: EDBD 15:50 → ER 15:50 → OVERFLOW 21:43 → EAST 10-05 21:25 → TELE-E-ADS 10-06 11:43 → EAST 10-06 20:20
PROVIDERS: ADMIT Nurse Practitioner Family; ATTEND Nurse Practitioner Acute Care
DX: S43.004A Unspecified dislocation of right shoulder joint, initial encounter (principal); S00.03XA Contusion of scalp, initial encounter; E86.0 Dehydration; I10 Essential (primary) hypertension; Z66 Do not resuscitate; W18.39XA Other fall on same level, initial encounter; F03.90 Unspecified dementia, unspecified severity, without behavioral disturbance, psychotic disturbance, mood disturbance, and anxiety; E78.5 Hyperlipidemia, unspecified; Z85.3 Personal history of malignant neoplasm of breast; Z90.710 Acquired absence of both cervix and uterus; Z88.6 Allergy status to analgesic agent; Y93.89 Activity, other specified; Y92.89 Other specified places as the place of occurrence of the external cause; Y99.8 Other external cause status
CPT/HCPCS: 36415; 70450; 71045; 72125; 73030; 80053; 81001; 82962; 83735; 83880; 84484; 85025; 85610; 85730; 93005; 94640; 97110; 97163; 97530; G0378; J1956

== ENCOUNTER 2022-10-13 00:57 | Inpatient (IN) | payer MEDICARE, OTHER, MEDICAID ==
[~2022-10-13] VITALS: Ht 160 cm; Wt 62.2 kg
[2022-10-13 01:38] LABS: Basophils # (auto) 0 10 ^3/uL (0-0.2); Basophils % (auto) 0.2 % (0.0-2.0); Eosinophils # (auto) 0 10 ^3/uL (0-0.8); Eosinophils % (auto) 0.1 % (0.0-7.0); Hematocrit 49.8 % (36.0-46.0); Hemoglobin 16.6 g/dL (12.2-16.2); Lymphocytes # (auto) 0.8 10 ^3/uL (0.4-5.4); Lymphocytes % (auto) 6.4 % (10.0-50.0); Mean Corpuscular Hemoglobin 28.4 pg (28.0-32.0); Mean Corpuscular Hgb Conc. 33.3 g/dL (32.0-36.0); Mean Corpuscular Volume 85.3 fL (80.0-100.0); Monocytes # (auto) 0.7 10 ^3/uL (0-1.3); Monocytes % (auto) 5.8 % (0.0-12.0); Neutrophils # (auto) 10.6 10 ^3/uL (1.6-8.6); Neutrophils % (auto) 87.5 % (37.0-80.0); Red Blood Cells 5.84 10^6/uL (4.0-5.20); Red Cell Distribution Width 14.6 % (11.8-14.3); White Blood Cell 12.1 10^3/uL (4.4-10.8)
[2022-10-13 01:54] LABS: INR 1.07 (0.9-1.15); Partial Thromboplastin Time 24.4 SEC (24.5-34.5); Prothrombin Time 11.2 sec (9.3-11.8)
[2022-10-13 01:56] LABS: Alanine Aminotransferase 67 U/L (7-40); Albumin 4.3 g/dL (3.2-4.8); Alkaline Phosphatase 261 U/L (46-116); Aspartate Aminotransferase 39 U/L (13-40); BUN/Creatinine Ratio 61.8 (10.0-20.0); Blood Urea Nitrogen 76 mg/dL (9-23); Calcium 10.1 mg/dL (8.7-10.4); Chloride 103 mmol/L (98-107); Glucose 165 mg/dL (74-106); Lipase 41 U/L (12-53); Magnesium 2.6 mg/dL (1.6-2.6); Potassium 4.8 mmol/L (3.5-5.1); Sodium 135 mmol/L (136-145); Total Protein 8.6 g/dL (5.7-8.2)
[2022-10-13] MEDS ORDERED: IOHEXOL 300 MG/ML 100ML BOTTLE IJ ONE (02:00)
[2022-10-13 02:30] VITALS: PULSE 97; RESP 16; O2SAT 90
[2022-10-13] MEDS ORDERED: LORazepam 2MG/ML-1ML VIAL IV ONE (04:00)
[2022-10-13] MEDS ORDERED: cefTRIAXone 1GM/50ML D5W 50 ML IV ONE (05:00)
[2022-10-13] MEDS ORDERED: PANTOPRAZOLE 40mg/50ML NS AE 50 ML IV ONE (05:00)
[2022-10-13] MEDS ORDERED: LACTATED RINGER'S 1,000 ML IV ONE ×2 (05:00)
[2022-10-13] MEDS ORDERED: PANTOPRAZOLE 80 MG in SODIUM CHL 0.9% 100 ML IV ONE (05:00)
[2022-10-13] MEDS ORDERED: PANTOPRAZOLE 40 MG/10 ML VIAL INJ IV ONE (05:57)
[2022-10-13] MEDS ORDERED: HYDROcodone-ACET 5/325MG TAB PO PRN (06:30)
[2022-10-13] MEDS ORDERED: DOCUSATE SOD 100 MG CAP PO PRN (06:30)
[2022-10-13] MEDS ORDERED: ONDANSETRON HCL 4 MG/2 ML VIAL IV PRN (06:30)
[2022-10-13] MEDS ORDERED: SODIUM CHLORIDE 0.9% 1,000 ML IV SCH (06:30)
[2022-10-13] MEDS ORDERED: NITROGLYCERIN 0.4 MG SL TAB SL PRN (07:15)
[2022-10-13 08:12] LABS: Basophils # (auto) 0.1 10 ^3/uL (0-0.2); Basophils % (auto) 1.2 % (0.0-2.0); Eosinophils # (auto) 0 10 ^3/uL (0-0.8); Hematocrit 54.3 % (36.0-46.0); Hemoglobin 17.6 g/dL (12.2-16.2); Lymphocytes % (auto) 10.2 % (10.0-50.0); Mean Corpuscular Hemoglobin 27.7 pg (28.0-32.0); Mean Corpuscular Hgb Conc. 32.3 g/dL (32.0-36.0); Mean Corpuscular Volume 85.9 fL (80.0-100.0); Monocytes # (auto) 0.7 10 ^3/uL (0-1.3); Monocytes % (auto) 6.8 % (0.0-12.0); Neutrophils # (auto) 8.2 10 ^3/uL (1.6-8.6); Neutrophils % (auto) 81.8 % (37.0-80.0); Nucleated Red Blood Cells % 0.1 %; Red Blood Cells 6.33 10^6/uL (4.0-5.20); Red Cell Distribution Width 15.1 % (11.8-14.3); White Blood Cell 10.1 10^3/uL (4.4-10.8)
[2022-10-13 08:18] LABS: Alanine Aminotransferase 62 U/L (7-40); Albumin 4.4 g/dL (3.2-4.8); Alkaline Phosphatase 238 U/L (46-116); Anion Gap 10.7 (5-15); Aspartate Aminotransferase 29 U/L (13-40); BUN/Creatinine Ratio 56.3 (10.0-20.0); Bilirubin, Total 0.9 mg/dL (0.2-1.0); Blood Urea Nitrogen 67 mg/dL (9-23); Calcium 10.2 mg/dL (8.5-10.1); Carbon Dioxide 25.3 mmol/L (20-30); Chloride 102 mmol/L (98-107); Glucose 139 mg/dL (74-106); Sodium 138 mmol/L (136-145); Total Protein 8.5 g/dL (5.7-8.2)
[2022-10-13 11:56] VITALS: PULSE 93; RESP 20; O2SAT 96
[2022-10-13] MEDS ORDERED: LORazepam 2MG/ML-1ML VIAL IV PRN (12:45)
[2022-10-13] MEDS: SODIUM CHLORIDE 0.9% 1,000 ML IV SCH ×2 (14:01→22:17)
[2022-10-13] MEDS ORDERED: amLODIPine BESYLATE 5 MG TAB PO ONE (17:30)
[2022-10-13] MEDS ORDERED: ENOXAPARIN SOD 40 MG/0.4 ML SYRINGE SC ONE (17:30)
[2022-10-13] MEDS ORDERED: AZITHROMYCIN 500MG/ 250ML 250 ML IV ONE (17:30)
[2022-10-13 19:04] LABS: Urine Bacteria NONE SEEN /hpf (None Seen); Urine Blood Negative /uL (Negative); Urine Clarity Clear (Clear); Urine Color Yellow (Yellow); Urine Protein, UAD Negative (Negative); Urine Specific Gravity 1.026 (1.001-1.035); Urine Urobilinogen Normal (Negative); Urine WBC 1 /hpf (0 - 5); Urine pH 5.5 (5.0-8.0)
[2022-10-13 19:11] LABS: Creatinine, Urine 42.04 mg/dL (30.0-125.0)
[2022-10-13 20:05] VITALS: PULSE 102; RESP 15; O2SAT 97
[2022-10-13 22:57] LABS: Rapid Influenza A Negative (Negative); Rapid Influenza B Negative (Negative)
[2022-10-14] MEDS: hydrALAZINE HCL 20 MG/ML VL IV PRN (01:10)
[2022-10-14 05:25] LABS: Basophils # (auto) 0 10 ^3/uL (0-0.2); Basophils % (auto) 0.1 % (0.0-2.0); Eosinophils # (auto) 0 10 ^3/uL (0-0.8); Eosinophils % (auto) 0.1 % (0.0-7.0); Hematocrit 52.5 % (36.0-46.0); Hemoglobin 17.2 g/dL (12.2-16.2); Lymphocytes # (auto) 1.2 10 ^3/uL (0.4-5.4); Lymphocytes % (auto) 9.3 % (10.0-50.0); Mean Corpuscular Hemoglobin 27.9 pg (28.0-32.0); Mean Corpuscular Hgb Conc. 32.8 g/dL (32.0-36.0); Monocytes # (auto) 1.3 10 ^3/uL (0-1.3); Monocytes % (auto) 10.4 % (0.0-12.0); Neutrophils # (auto) 10.2 10 ^3/uL (1.6-8.6); Neutrophils % (auto) 80.1 % (37.0-80.0); Nucleated Red Blood Cells % 0.4 %; Red Blood Cells 6.18 10^6/uL (4.0-5.20); Red Cell Distribution Width 14.8 % (11.8-14.3); White Blood Cell 12.8 10^3/uL (4.4-10.8)
[2022-10-14 07:30] VITALS: PULSE 98; RESP 15; O2SAT 97
[2022-10-14] MEDS: SODIUM CHLORIDE 0.9% 1,000 ML IV SCH ×2 (08:30→21:26)
[2022-10-14 08:34] LABS: Alanine Aminotransferase 46 U/L (7-40); Albumin 3.9 g/dL (3.2-4.8); Alkaline Phosphatase 176 U/L (46-116); Anion Gap 8.2 (5-15); Aspartate Aminotransferase 24 U/L (13-40); Calcium 9.7 mg/dL (8.5-10.1); Carbon Dioxide 25.8 mmol/L (20-30); Chloride 110 mmol/L (98-107); Glucose 119 mg/dL (74-106); Magnesium 2.1 mg/dL (1.6-2.6); Potassium 4.5 mmol/L (3.5-5.1); Sodium 144 mmol/L (136-145)
[2022-10-14 08:35] LABS: Total Protein 7.6 g/dL (5.7-8.2)
[2022-10-14 08:47] LABS: Blood Urea Nitrogen 47 mg/dL (9-23)
[2022-10-14] MEDS: cefTRIAXone 1GM/50ML D5W 50 ML IV SCH (09:58)
[2022-10-14 10:00] VITALS: BP 125/64; PULSE 102; RESP 18; TEMP 98.1; O2SAT 99
[2022-10-14] MEDS: amLODIPine BESYLATE 5 MG TAB PO SCH (10:00)
[2022-10-14] MEDS: ENOXAPARIN SOD 40 MG/0.4 ML SYRINGE SC SCH (10:22)
[2022-10-14] MEDS: AZITHROMYCIN 500MG/ 250ML 250 ML IV SCH (10:25)
[2022-10-14 17:00] VITALS: BP 105/65; PULSE 92; RESP 16; TEMP 97.6; O2SAT 96
[2022-10-14] MEDS ORDERED: POLYETHYLENE GLYCOL 17 GM PWDR PO ONE (17:45)
[2022-10-14 20:00] VITALS: PULSE 108; PULSE 89; PULSE 94; RESP 17; RESP 18; O2SAT 96
[2022-10-14] MEDS: PANTOPRAZOLE 40 MG/10 ML VIAL INJ IV SCH (21:25)
[2022-10-14] MEDS: DOCUSATE SOD 100 MG CAP PO SCH (21:26)
[2022-10-14 22:12] LABS: COVID19 ANTIGEN SOFIA FIA NEGATIVE (NEGATIVE)
[2022-10-15] MEDS: LORazepam 2MG/ML-1ML VIAL IV PRN ×2 (00:44→17:36)
[2022-10-15 05:00] VITALS: BP 132/76; PULSE 102; RESP 18; TEMP 97.3; O2SAT 94
[2022-10-15] MEDS: SODIUM CHLORIDE 0.9% 1,000 ML IV SCH ×2 (05:57→19:26)
[2022-10-15 08:00] VITALS: PULSE 82; PULSE 84; RESP 18; O2SAT 94
[2022-10-15] MEDS ORDERED: LACTULOSE 20Gm/30ML SOLN PO ONE (08:30)
[2022-10-15 09:00] VITALS: BP 119/76; PULSE 92; RESP 18; TEMP 97.4; O2SAT 94
[2022-10-15] MEDS ORDERED: FLEET ENEMA(ADULT) 135 ML PR ONE (09:30)
[2022-10-15] MEDS: cefTRIAXone 1GM/50ML D5W 50 ML IV SCH (10:09)
[2022-10-15] MEDS: AZITHROMYCIN 500MG/ 250ML 250 ML IV SCH (10:09)
[2022-10-15] MEDS: PANTOPRAZOLE 40 MG/10 ML VIAL INJ IV SCH ×2 (10:09→21:12)
[2022-10-15] MEDS: DOCUSATE SOD 100 MG CAP PO SCH ×2 (10:10→21:13)
[2022-10-15] MEDS: ENOXAPARIN SOD 40 MG/0.4 ML SYRINGE SC SCH (10:11)
[2022-10-15] MEDS: amLODIPine BESYLATE 5 MG TAB PO SCH (10:11)
[2022-10-15 10:12] LABS: Basophils # (auto) 0.1 10 ^3/uL (0-0.2); Eosinophils # (auto) 0 10 ^3/uL (0-0.8); Eosinophils % (auto) 0.3 % (0.0-7.0); Hematocrit 45.7 % (36.0-46.0); Hemoglobin 14.9 g/dL (12.2-16.2); Lymphocytes # (auto) 2.1 10 ^3/uL (0.4-5.4); Lymphocytes % (auto) 19.3 % (10.0-50.0); Mean Corpuscular Hemoglobin 28.3 pg (28.0-32.0); Mean Corpuscular Hgb Conc. 32.6 g/dL (32.0-36.0); Monocytes # (auto) 0.8 10 ^3/uL (0-1.3); Monocytes % (auto) 7.9 % (0.0-12.0); Neutrophils # (auto) 7.7 10 ^3/uL (1.6-8.6); Neutrophils % (auto) 71.5 % (37.0-80.0); Nucleated Red Blood Cells % 0.1 %; Red Blood Cells 5.26 10^6/uL (4.0-5.20); Red Cell Distribution Width 15.2 % (11.8-14.3); White Blood Cell 10.7 10^3/uL (4.4-10.8)
[2022-10-15 10:41] LABS: Alanine Aminotransferase 33 U/L (7-40); Albumin 3.7 g/dL (3.2-4.8); Alkaline Phosphatase 143 U/L (46-116); Anion Gap 6.3 (5-15); Aspartate Aminotransferase 20 U/L (13-40); BUN/Creatinine Ratio 44.4 (10.0-20.0); Calcium 9.4 mg/dL (8.5-10.1); Carbon Dioxide 26.7 mmol/L (20-30); Chloride 113 mmol/L (98-107); Glucose 97 mg/dL (74-106); Sodium 146 mmol/L (136-145)
[2022-10-15 10:42] LABS: Bilirubin, Total 1.1 mg/dL (0.2-1.0)
[2022-10-15 10:45] LABS: Blood Urea Nitrogen 36 mg/dL (9-23)
[2022-10-15 17:00] VITALS: BP 137/80; PULSE 95; RESP 18; TEMP 97.7; O2SAT 97
[2022-10-15 20:00] VITALS: PULSE 89; PULSE 96; RESP 20; O2SAT 99
[2022-10-15] MEDS: MELATONIN 5 MG TAB PO SCH (21:13)
[2022-10-15 22:00] VITALS: BP 147/61; PULSE 89; RESP 20; TEMP 98.2; O2SAT 99
[2022-10-16] MEDS: SODIUM CHLORIDE 0.9% 1,000 ML IV SCH (00:30)
[2022-10-16] MEDS: LORazepam 2MG/ML-1ML VIAL IV PRN ×2 (02:27→20:15)
[2022-10-16 04:52] VITALS: BP 145/71; PULSE 80; RESP 20; TEMP 98.8; O2SAT 99
[2022-10-16 08:00] VITALS: PULSE 65; PULSE 82; RESP 20; O2SAT 96
[2022-10-16] MEDS: DOCUSATE SOD 100 MG CAP PO SCH ×2 (10:00→23:05)
[2022-10-16] MEDS: ENOXAPARIN SOD 40 MG/0.4 ML SYRINGE SC SCH (10:00)
[2022-10-16] MEDS: amLODIPine BESYLATE 5 MG TAB PO SCH (10:00)
[2022-10-16] MEDS ORDERED: ACETAMINOPHEN 325 MG TAB PO PRN (11:30)
[2022-10-16 13:00] VITALS: BP 152/78; PULSE 88; RESP 16; TEMP 98.7; O2SAT 95
[2022-10-16] MEDS: AZITHROMYCIN 500MG/ 250ML 250 ML IV SCH (15:04)
[2022-10-16] MEDS: cefTRIAXone 1GM/50ML D5W 50 ML IV SCH (15:04)
[2022-10-16] MEDS: PANTOPRAZOLE 40 MG/10 ML VIAL INJ IV SCH ×2 (15:05→23:04)
[2022-10-16] MEDS: D5W/SOD CHL 0.45% 1,000 ML IV SCH ×2 (15:07→21:30)
[2022-10-16 17:00] VITALS: BP 153/72
[2022-10-16 20:00] VITALS: PULSE 85; RESP 18; O2SAT 96
[2022-10-16 22:00] VITALS: BP 123/58; PULSE 63; RESP 18; TEMP 98.7; O2SAT 96
[2022-10-16] MEDS: MELATONIN 5 MG TAB PO SCH (23:04)
[2022-10-17] VITALS (7 sets, daily range): BP systolic 116–157; BP diastolic 48–91; PULSE 66–82; RESP 16–20; TEMP 97.5–99; O2SAT 92–96
[2022-10-17] MEDS: D5W/SOD CHL 0.45% 1,000 ML IV SCH (02:36)
[2022-10-17] MEDS: LORazepam 2MG/ML-1ML VIAL IV PRN ×2 (04:13→15:45)
[2022-10-17] MEDS: hydrALAZINE HCL 20 MG/ML VL IV PRN (04:32)
[2022-10-17 07:26] LABS: Chloride 110 mmol/L (98-107); Potassium 3.4 mmol/L (3.5-5.1); Sodium 142 mmol/L (136-145)
[2022-10-17 07:27] LABS: Anion Gap 7.8 (5-15); Calcium 8.8 mg/dL (8.5-10.1); Carbon Dioxide 24.2 mmol/L (20-30)
[2022-10-17 07:32] LABS: BUN/Creatinine Ratio 28.2 (10.0-20.0); Blood Urea Nitrogen 20 mg/dL (9-23); Glucose 124 mg/dL (74-106)
[2022-10-17 07:33] LABS: Magnesium 1.6 mg/dL (1.6-2.6)
[2022-10-17 07:45] LABS: Basophils # (auto) 0 10 ^3/uL (0-0.2); Basophils % (auto) 0.4 % (0.0-2.0); Eosinophils # (auto) 0.1 10 ^3/uL (0-0.8); Eosinophils % (auto) 1.6 % (0.0-7.0); Hematocrit 38.5 % (36.0-46.0); Hemoglobin 12.7 g/dL (12.2-16.2); Lymphocytes # (auto) 1.5 10 ^3/uL (0.4-5.4); Lymphocytes % (auto) 17.9 % (10.0-50.0); Mean Corpuscular Hemoglobin 28.6 pg (28.0-32.0); Mean Corpuscular Hgb Conc. 32.9 g/dL (32.0-36.0); Mean Corpuscular Volume 87.1 fL (80.0-100.0); Monocytes # (auto) 0.7 10 ^3/uL (0-1.3); Monocytes % (auto) 7.6 % (0.0-12.0); Neutrophils # (auto) 6.2 10 ^3/uL (1.6-8.6); Neutrophils % (auto) 72.5 % (37.0-80.0); Red Blood Cells 4.42 10^6/uL (4.0-5.20); Red Cell Distribution Width 14.4 % (11.8-14.3); White Blood Cell 8.5 10^3/uL (4.4-10.8)
[2022-10-17] MEDS ORDERED: POTASSIUM CHL 20 Meq TABLET PO ONE (08:30)
[2022-10-17] MEDS: cefTRIAXone 1GM/50ML D5W 50 ML IV SCH (09:00)
[2022-10-17] MEDS: AZITHROMYCIN 500MG/ 250ML 250 ML IV SCH (10:00)
[2022-10-17] MEDS ORDERED: POTASSIUM EFFERVESENT TAB 25 MEQ PO ONE (13:45)
[2022-10-17] MEDS: ENOXAPARIN SOD 40 MG/0.4 ML SYRINGE SC SCH (13:59)
[2022-10-17] MEDS: PANTOPRAZOLE 40 MG/10 ML VIAL INJ IV SCH (13:59)
[2022-10-17] MEDS: DOCUSATE SOD 100 MG CAP PO SCH (14:00)
[2022-10-17] MEDS: amLODIPine BESYLATE 5 MG TAB PO SCH (14:00)
== END 2022-10-17 19:25 | DRG 640 ==
LOC: EDBD 00:57 → ER 00:59 → TELE 07:07 → TELE-E-ADS 21:54 → TELE 10-14 01:24 → TELE-CENTR 10-14 13:09 → TELE-E-ADS 10-14 18:04
PROVIDERS: ADMIT Internal Medicine Geriatric Medicine; ATTEND Student in an Organized Health Care Education/Training Program
DX: E86.0 Dehydration (principal); N17.0 Acute kidney failure with tubular necrosis; K92.2 Gastrointestinal hemorrhage, unspecified; N39.0 Urinary tract infection, site not specified; F03.94 Unspecified dementia, unspecified severity, with anxiety; K59.00 Constipation, unspecified; E87.0 Hyperosmolality and hypernatremia; Z20.822 Contact with and (suspected) exposure to COVID-19; I10 Essential (primary) hypertension; E78.5 Hyperlipidemia, unspecified; R73.9 Hyperglycemia, unspecified; Z90.710 Acquired absence of both cervix and uterus; Z88.5 Allergy status to narcotic agent
CPT/HCPCS: 36415; 70450; 71045; 74177; 80048; 80053; 81001; 82570; 83036; 83605; 83690; 83735; 83880; 84300; 85025; 85610; 85730; 86850; 86900; 86901; 87426; 87804; 92610; 97110; 97116; 97163; 97530; C9113; G0378; J0696

== ENCOUNTER 2022-10-26 23:40 | Inpatient (IN) | payer MEDICARE, OTHER, MEDICAID ==
[~2022-10-26] VITALS: Ht 167.6 cm; Wt 79.1 kg
[2022-10-27] MEDS ORDERED: SODIUM CHLORIDE 0.9% 1,000 ML IV ONE
[2022-10-27] MEDS ORDERED: PANTOPRAZOLE 40 MG/10 ML VIAL INJ IV ONE
[2022-10-27 00:22] LABS: Basophils # (auto) 0.1 10 ^3/uL (0-0.2); Basophils % (auto) 0.5 % (0.0-2.0); Eosinophils # (auto) 0 10 ^3/uL (0-0.8); Eosinophils % (auto) 0.3 % (0.0-7.0); Hematocrit 45.5 % (36.0-46.0); Hemoglobin 14.7 g/dL (12.2-16.2); Lymphocytes # (auto) 1.1 10 ^3/uL (0.4-5.4); Lymphocytes % (auto) 7.5 % (10.0-50.0); Mean Corpuscular Hgb Conc. 32.4 g/dL (32.0-36.0); Mean Corpuscular Volume 86.5 fL (80.0-100.0); Monocytes # (auto) 0.7 10 ^3/uL (0-1.3); Monocytes % (auto) 4.6 % (0.0-12.0); Neutrophils # (auto) 12.7 10 ^3/uL (1.6-8.6); Neutrophils % (auto) 87.1 % (37.0-80.0); Nucleated Red Blood Cells % 0.1 %; Red Blood Cells 5.26 10^6/uL (4.0-5.20); Red Cell Distribution Width 15.4 % (11.8-14.3); White Blood Cell 14.6 10^3/uL (4.4-10.8)
[2022-10-27 00:41] LABS: Alanine Aminotransferase 17 U/L (7-40); Alkaline Phosphatase 128 U/L (46-116); Anion Gap 5 (5-15); Aspartate Aminotransferase 16 U/L (13-40); BUN/Creatinine Ratio 18.8 (10.0-20.0); Bilirubin, Total 0.9 mg/dL (0.2-1.0); Blood Urea Nitrogen 15 mg/dL (9-23); Calcium 9.3 mg/dL (8.7-10.4); Carbon Dioxide 30 mmol/L (20-30); Chloride 100 mmol/L (98-107); Glucose 142 mg/dL (74-106); Potassium 3.7 mmol/L (3.5-5.1); Sodium 135 mmol/L (136-145); Total Protein 6.7 g/dL (5.7-8.2)
[2022-10-27 00:55] VITALS: PULSE 86; RESP 20; O2SAT 96
[2022-10-27] MEDS ORDERED: OCTREOTIDE ACETATE 100 MCG in SODIUM CHL 0.9% 50 ML IV ONE (01:30)
[2022-10-27] MEDS ORDERED: PIPERACILLIN-TAZOB 3.375GM 100 ML IV ONE (01:30)
[2022-10-27] MEDS ORDERED: OCTREOTIDE ACETATE 100 MCG/ML VL ONE (01:42)
[2022-10-27] MEDS ORDERED: OCTREOTIDE ACETATE 500 MCG/ML VL ONE (01:42)
[2022-10-27] MEDS ORDERED: ONDANSETRON HCL 4 MG/2 ML VIAL IV ONE (01:45)
[2022-10-27] MEDS ORDERED: ACETAMINOPHEN 325 MG TAB PO PRN (02:15)
[2022-10-27] MEDS ORDERED: HYDROcodone-ACET 5/325MG TAB PO PRN (02:15)
[2022-10-27] MEDS ORDERED: ONDANSETRON HCL 4 MG/2 ML VIAL IV PRN (02:15)
[2022-10-27] MEDS ORDERED: MORPHINE SULFATE INJ 2 MG/ml SYRG IV PRN (03:00)
[2022-10-27] MEDS ORDERED: NITROGLYCERIN 0.4 MG SL TAB SL PRN (03:00)
[2022-10-27] MEDS: OCTREOTIDE ACETATE 500 MCG in SODIUM CHL 0.9% 99 ML IV SCH ×2 (03:01→14:21)
[2022-10-27] MEDS: SODIUM CHLORIDE 0.9% 1,000 ML IV SCH ×4 (03:12→22:45)
[2022-10-27 04:50] LABS: Urine Bacteria FEW /hpf (None Seen); Urine Blood Negative /uL (Negative); Urine Clarity Clear (Clear); Urine Color Yellow (Yellow); Urine Mucus FEW (None Seen); Urine Protein, UAD TRACE (Negative); Urine Specific Gravity 1.017 (1.001-1.035); Urine Urobilinogen Normal (Negative); Urine WBC 3 /hpf (0 - 5)
[2022-10-27 05:32] LABS: Basophils # (auto) 0.1 10 ^3/uL (0-0.2); Basophils % (auto) 0.7 % (0.0-2.0); Eosinophils # (auto) 0 10 ^3/uL (0-0.8); Eosinophils % (auto) 0.1 % (0.0-7.0); Hematocrit 42.2 % (36.0-46.0); Hemoglobin 13.9 g/dL (12.2-16.2); Lymphocytes % (auto) 9.8 % (10.0-50.0); Mean Corpuscular Hemoglobin 28.7 pg (28.0-32.0); Mean Corpuscular Hgb Conc. 32.9 g/dL (32.0-36.0); Mean Corpuscular Volume 87.2 fL (80.0-100.0); Monocytes # (auto) 0.4 10 ^3/uL (0-1.3); Monocytes % (auto) 4.4 % (0.0-12.0); Neutrophils # (auto) 8.5 10 ^3/uL (1.6-8.6); Red Blood Cells 4.84 10^6/uL (4.0-5.20); Red Cell Distribution Width 15.5 % (11.8-14.3)
[2022-10-27 05:52] LABS: Alanine Aminotransferase 14 U/L (7-40); Albumin 3.4 g/dL (3.2-4.8); Alkaline Phosphatase 112 U/L (46-116); Anion Gap 5 (5-15); Aspartate Aminotransferase 14 U/L (13-40); BUN/Creatinine Ratio 15.2 (10.0-20.0); Blood Urea Nitrogen 12 mg/dL (9-23); Calcium 8.2 mg/dL (8.7-10.4); Carbon Dioxide 28 mmol/L (20-30); Chloride 104 mmol/L (98-107); Glucose 150 mg/dL (74-106); Potassium 3.8 mmol/L (3.5-5.1); Sodium 137 mmol/L (136-145)
[2022-10-27 05:53] LABS: Total Protein 5.8 g/dL (5.7-8.2)
[2022-10-27] MEDS: metroNIDAZOLE 500MG/100ML 100 ML IV SCH ×3 (06:32→22:23)
[2022-10-27] MEDS ORDERED: DOCUSATE SOD 100 MG CAP PO ONE (07:00)
[2022-10-27 07:41] VITALS: PULSE 72; RESP 18; O2SAT 96
[2022-10-27] MEDS: cefTRIAXone 1GM/50ML D5W 50 ML IV SCH (09:00)
[2022-10-27] MEDS: LORazepam 2MG/ML-1ML VIAL IV PRN ×2 (09:22→15:02)
[2022-10-27] MEDS ORDERED: LACTULOSE 20Gm/30ML SOLN PO ONE (12:30)
[2022-10-27] MEDS ORDERED: LORazepam 2MG/ML-1ML VIAL IV PRN (16:45)
[2022-10-27 20:18] VITALS: BP 132/54; PULSE 75; RESP 20; TEMP 97.6; O2SAT 98
[2022-10-27] MEDS: traZODone HCL 50 MG TAB PO SCH (22:22)
[2022-10-27] MEDS: QUEtiapine FUMARATE 25 MG TAB PO SCH (22:22)
[2022-10-27] MEDS: DOCUSATE SOD 100 MG CAP PO SCH (22:22)
[2022-10-28] VITALS (7 sets, daily range): BP systolic 110–141; BP diastolic 53–80; PULSE 22–84; RESP 14–22; TEMP 97.7–98.2; O2SAT 96–100
[2022-10-28] MEDS: SODIUM CHLORIDE 0.9% 1,000 ML IV SCH ×2 (02:45→14:39)
[2022-10-28 06:03] LABS: Basophils # (auto) 0.1 10 ^3/uL (0-0.2); Basophils % (auto) 0.8 % (0.0-2.0); Eosinophils # (auto) 0.1 10 ^3/uL (0-0.8); Eosinophils % (auto) 1.3 % (0.0-7.0); Hematocrit 44.1 % (36.0-46.0); Hemoglobin 14.6 g/dL (12.2-16.2); Lymphocytes # (auto) 1.3 10 ^3/uL (0.4-5.4); Lymphocytes % (auto) 14.2 % (10.0-50.0); Mean Corpuscular Hemoglobin 29.1 pg (28.0-32.0); Mean Corpuscular Hgb Conc. 33.1 g/dL (32.0-36.0); Monocytes # (auto) 0.8 10 ^3/uL (0-1.3); Monocytes % (auto) 8.5 % (0.0-12.0); Neutrophils # (auto) 6.7 10 ^3/uL (1.6-8.6); Neutrophils % (auto) 75.2 % (37.0-80.0); Red Blood Cells 5.01 10^6/uL (4.0-5.20); Red Cell Distribution Width 15.4 % (11.8-14.3); White Blood Cell 8.9 10^3/uL (4.4-10.8)
[2022-10-28 06:17] LABS: Alanine Aminotransferase 16 U/L (7-40); Albumin 3.4 g/dL (3.2-4.8); Alkaline Phosphatase 125 U/L (46-116); Anion Gap 5 (5-15); Aspartate Aminotransferase 17 U/L (13-40); BUN/Creatinine Ratio 9.8 (10.0-20.0); Bilirubin, Total 1.1 mg/dL (0.2-1.0); Blood Urea Nitrogen 8 mg/dL (9-23); Carbon Dioxide 31 mmol/L (20-30); Chloride 104 mmol/L (98-107); Glucose 97 mg/dL (74-106); Potassium 4.1 mmol/L (3.5-5.1); Sodium 140 mmol/L (136-145); Total Protein 6.4 g/dL (5.7-8.2)
[2022-10-28] MEDS: metroNIDAZOLE 500MG/100ML 100 ML IV SCH ×3 (06:18→21:06)
[2022-10-28] MEDS: QUEtiapine FUMARATE 25 MG TAB PO SCH ×2 (09:56→21:06)
[2022-10-28] MEDS: DOCUSATE SOD 100 MG CAP PO SCH ×2 (09:56→21:06)
[2022-10-28] MEDS: cefTRIAXone 1GM/50ML D5W 50 ML IV SCH (09:56)
[2022-10-28] MEDS ORDERED: FLEET ENEMA(ADULT) 135 ML PR ONE (17:15)
[2022-10-28] MEDS ORDERED: LACTULOSE 20Gm/30ML SOLN PO PRN (17:15)
[2022-10-28] MEDS: PANTOPRAZOLE 40 MG/10 ML VIAL INJ IV SCH (21:06)
[2022-10-28] MEDS: traZODone HCL 50 MG TAB PO SCH (21:07)
[2022-10-29] VITALS (7 sets, daily range): BP systolic 100–158; BP diastolic 38–59; PULSE 57–95; RESP 14–20; TEMP 97.5–98.3; O2SAT 97–100
[2022-10-29] MEDS: metroNIDAZOLE 500MG/100ML 100 ML IV SCH ×3 (05:07→21:04)
[2022-10-29] MEDS: SODIUM CHLORIDE 0.9% 1,000 ML IV SCH (11:24)
[2022-10-29] MEDS: DOCUSATE SOD 100 MG CAP PO SCH ×2 (11:25→21:04)
[2022-10-29] MEDS: cefTRIAXone 1GM/50ML D5W 50 ML IV SCH (11:25)
[2022-10-29] MEDS: PANTOPRAZOLE 40 MG/10 ML VIAL INJ IV SCH ×2 (11:25→21:03)
[2022-10-29] MEDS: QUEtiapine FUMARATE 25 MG TAB PO SCH ×2 (11:25→21:03)
[2022-10-29] MEDS: traZODone HCL 50 MG TAB PO SCH (21:03)
[2022-10-30] VITALS (8 sets, daily range): BP systolic 100–122; BP diastolic 34–95; PULSE 53–85; RESP 14–16; TEMP 97.8–98.2; O2SAT 94–100
[2022-10-30] MEDS: SODIUM CHLORIDE 0.9% 1,000 ML IV SCH (04:45)
[2022-10-30] MEDS: metroNIDAZOLE 500MG/100ML 100 ML IV SCH (06:27)
[2022-10-30 06:42] LABS: INR 1.22 (0.9-1.15); Partial Thromboplastin Time 28.5 SEC (24.5-34.5); Prothrombin Time 12.6 sec (9.3-11.8)
[2022-10-30] MEDS: cefTRIAXone 1GM/50ML D5W 50 ML IV SCH (09:00)
[2022-10-30] MEDS: PANTOPRAZOLE 40 MG/10 ML VIAL INJ IV SCH ×2 (10:00→20:37)
[2022-10-30] MEDS: DOCUSATE SOD 100 MG CAP PO SCH ×2 (10:00→20:37)
[2022-10-30] MEDS: QUEtiapine FUMARATE 25 MG TAB PO SCH ×2 (10:00→20:37)
[2022-10-30] MEDS ORDERED: fentaNYL CITRATE 100 MCG/2 ML VL ONE (10:02)
[2022-10-30] MEDS ORDERED: MIDAZOLAM HCL 2MG/2ML 2ml VIAL (1mg/ml) ONE (10:02)
[2022-10-30] MEDS ORDERED: PROPOFOL 10 MG/ML 20 ML IV ONE (10:26)
[2022-10-30] MEDS ORDERED: LIDOCAINE 2% (LOCAL ANESTH.) PF 5ml SDV ONE (10:27)
[2022-10-30] MEDS ORDERED: FLEET ENEMA(ADULT) 135 ML PR ONE (10:45)
[2022-10-30] MEDS ORDERED: ONDANSETRON HCL 4 MG/2 ML VIAL IV PRN (10:45)
[2022-10-30] MEDS: LACTULOSE 20Gm/30ML SOLN PO SCH (20:37)
[2022-10-30] MEDS: traZODone HCL 50 MG TAB PO SCH (20:37)
[2022-10-31 05:00] VITALS: BP 101/47; PULSE 69; RESP 16; TEMP 97.4; O2SAT 94
[2022-10-31 07:07] LABS: Basophils # (auto) 0 10 ^3/uL (0-0.2); Basophils % (auto) 0.4 % (0.0-2.0); Eosinophils # (auto) 0.1 10 ^3/uL (0-0.8); Hematocrit 39.3 % (36.0-46.0); Hemoglobin 13.1 g/dL (12.2-16.2); Lymphocytes # (auto) 1.2 10 ^3/uL (0.4-5.4); Mean Corpuscular Hemoglobin 29.4 pg (28.0-32.0); Mean Corpuscular Hgb Conc. 33.3 g/dL (32.0-36.0); Mean Corpuscular Volume 88.3 fL (80.0-100.0); Monocytes # (auto) 0.5 10 ^3/uL (0-1.3); Neutrophils # (auto) 4.3 10 ^3/uL (1.6-8.6); Neutrophils % (auto) 70.6 % (37.0-80.0); Nucleated Red Blood Cells % 0.1 %; Red Blood Cells 4.45 10^6/uL (4.0-5.20); Red Cell Distribution Width 15.7 % (11.8-14.3); White Blood Cell 6.1 10^3/uL (4.4-10.8)
[2022-10-31 07:42] LABS: Albumin 2.8 g/dL (3.2-4.8); Alkaline Phosphatase 88 U/L (46-116); Anion Gap 7 (5-15); Aspartate Aminotransferase 14 U/L (13-40); BUN/Creatinine Ratio 15.9 (10.0-20.0); Blood Urea Nitrogen 11 mg/dL (9-23); Calcium 8.4 mg/dL (8.5-10.1); Carbon Dioxide 26 mmol/L (20-30); Chloride 110 mmol/L (98-107); Glucose 84 mg/dL (74-106); Potassium 3.3 mmol/L (3.5-5.1); Sodium 143 mmol/L (136-145)
[2022-10-31 07:43] LABS: Bilirubin, Total 0.7 mg/dL (0.2-1.0); Total Protein 5.3 g/dL (5.7-8.2)
[2022-10-31 07:49] LABS: Alanine Aminotransferase < 9 U/L (7-40)
[2022-10-31 08:00] VITALS: PULSE 58; PULSE 59; RESP 15; O2SAT 96
[2022-10-31 08:52] VITALS: BP 109/47; PULSE 59; RESP 15; TEMP 98.3; O2SAT 92
[2022-10-31] MEDS: DOCUSATE SOD 100 MG CAP PO SCH (09:07)
[2022-10-31] MEDS: QUEtiapine FUMARATE 25 MG TAB PO SCH (09:07)
[2022-10-31] MEDS: PANTOPRAZOLE 40 MG/10 ML VIAL INJ IV SCH (09:07)
[2022-10-31] MEDS: LACTULOSE 20Gm/30ML SOLN PO SCH (09:07)
[2022-10-31 13:00] VITALS: BP 110/48; PULSE 63; RESP 18; TEMP 97.8; O2SAT 94
[2022-10-31] MEDS ORDERED: POTASSIUM EFFERVESENT TAB 25 MEQ PO ONE (13:00)
[2022-10-31 17:00] VITALS: BP 121/40; PULSE 65; RESP 15; TEMP 98.1; O2SAT 96
== END 2022-10-31 18:36 | DRG 871 ==
LOC: EDBD 23:40 → ER 23:40 → TELE 10-27 02:55 → TELE-EAST 10-27 18:50
PROVIDERS: ADMIT Nurse Practitioner Family; ATTEND Nurse Practitioner Acute Care
PROC: 0DB68ZX Excision of Stomach, Via Natural or Artificial Opening Endoscopic, Diagnostic (ICD-10-PCS; 2022-10-30)
PROC: 0DB58ZX Excision of Esophagus, Via Natural or Artificial Opening Endoscopic, Diagnostic (ICD-10-PCS; 2022-10-30)
PROC: 0DB98ZX Excision of Duodenum, Via Natural or Artificial Opening Endoscopic, Diagnostic (ICD-10-PCS; principal; 2022-10-30 10:09)
DX: A41.9 Sepsis, unspecified organism (principal); G93.41 Metabolic encephalopathy; K22.11 Ulcer of esophagus with bleeding; K59.00 Constipation, unspecified; I10 Essential (primary) hypertension; Z66 Do not resuscitate; E78.5 Hyperlipidemia, unspecified; D72.829 Elevated white blood cell count, unspecified; K44.9 Diaphragmatic hernia without obstruction or gangrene; F03.90 Unspecified dementia, unspecified severity, without behavioral disturbance, psychotic disturbance, mood disturbance, and anxiety; F41.9 Anxiety disorder, unspecified; Z90.49 Acquired absence of other specified parts of digestive tract; Z90.710 Acquired absence of both cervix and uterus; Z90.11 Acquired absence of right breast and nipple; Z85.3 Personal history of malignant neoplasm of breast; Z88.5 Allergy status to narcotic agent
CPT/HCPCS: 36415; 71045; 74176; 80053; 81001; 83605; 83690; 84484; 85025; 85610; 85730; 86850; 86900; 86901; 87040; 93005; 96361; 96365; 96375; 99291; C9113; G0378; J0696; J2001; J2250; J2405; J2543; J2704; J3490